=== PATIENT | female | born 1930 | race Caucasian/White ===

== ENCOUNTER 2017-02-18 21:25 | Inpatient (IN) | payer MEDICARE ==
[~2017-02-18] VITALS: Ht 160 cm; Wt 48.1 kg
[2017-02-18 22:02] LABS: BASOPHILS % (AUTO) 0.3 % (0.0-2.0); HEMATOCRIT 43 % (33-45); HEMOGLOBIN 13.5 g/dL (11.5-14.8); LYMPHOCYTES # (AUTO) 0.8 /CMM (0.8-4.8); LYMPHOCYTES % (AUTO) 5.2 % (20.0-44.0); MEAN CORPUSCULAR HEMOGLOBIN 27 PG (26.0-33.0); MEAN CORPUSCULAR HGB CONC 32 g/dl (31.0-36.0); MEAN CORPUSCULAR VOLUME 87 fL (82-100); MONOCYTES # (AUTO) 0.5 /CMM (0.1-1.30); MONOCYTES % (AUTO) 3.6 % (2.0-12.0); NEUTROPHILS # (AUTO) 13.4 /CMM (1.8-8.9); NEUTROPHILS % (AUTO) 90.9 % (43.0-81.0); PLATELET COUNT (AUTO) 291 /CMM (150-450); RED BLOOD CELL COUNT(AUTO) 4.93 MIL/uL (4.0-5.2); WHITE BLOOD COUNT (AUTO) 14.8 K/uL (4.3-11.0)
[2017-02-18 22:22] LABS: CALCIUM, SERUM 8.5 mg/dL (8.5-10.1); CARBON DIOXIDE 33 mmol/L (21-32); CHLORIDE 103 mmol/L (98-107); CREATININE 0.8 mg/dL (0.6-1.3); GLUCOSE 172 mg/dL (74-106); INR 1.82 (0.87-1.13); POTASSIUM 3.8 mmol/L (3.5-5.1); SODIUM SERUM 140 mmol/L (136-145); UREA NITROGEN, BLOOD 11 mg/dL (7-18)
[2017-02-18] MEDS ORDERED: AZITHROMYCIN 500 MG in IV D5W 250 ML IV ONE (22:30)
[2017-02-18] MEDS ORDERED: IV NS 0.9% 1,000 ML BAG IV ONE (22:30)
[2017-02-18] MEDS ORDERED: CEFTRIAXONE 1GM BAG (ER ONLY) 50 ML IV ONE ×2 (22:30→22:34)
[2017-02-18 22:31] LABS: TROPONIN I < 0.017 ng/mL (0.00-0.056)
[2017-02-18] MEDS ORDERED: AZITHROMYCIN 500 MG VIAL ONE (22:33)
[2017-02-18] MEDS ORDERED: methylPREDNISolone SOD SUCC 125 MG/2ML VIAL IV ONE (23:00)
[2017-02-18] MEDS ORDERED: ALBUTEROL FS 2.5 MG/3 ML VIAL.NEB NEB ONE (23:00)
[2017-02-18] MEDS ORDERED: IPRATROPIUM NEB FS 0.5 MG/2.5 ML AMPUL.NEB NEB ONE (23:00)
[2017-02-18] MEDS ORDERED: ALBUTEROL FS 2.5 MG/3 ML VIAL.NEB ONE (23:03)
[2017-02-18] MEDS ORDERED: IPRATROPIUM NEB FS 0.5 MG/2.5 ML AMPUL.NEB ONE (23:03)
[2017-02-18] MEDS ORDERED: methylPREDNISolone SOD SUCC 125 MG/2ML VIAL ONE (23:03)
[2017-02-18 23:33] LABS: ALBUMIN 3.4 g/dL (3.4-5.0); BILIRUBIN,DIRECT 0.1 mg/dL (0.0-0.2); BILIRUBIN,TOTAL 0.5 mg/dL (0.2-1.0); TOTAL PROTEIN, SERUM 7.2 g/dL (6.4-8.2)
[2017-02-19] VITALS (7 sets, daily range): BP systolic 119–141; BP diastolic 53–69
[2017-02-19 01:02] LABS: APPEARANCE,URINE SL CLOUDY (CLEAR); BILIRUBIN,URINE NEGATIVE (NEGATIVE); BLOOD, URINE TRACE Ery/uL (NEGATIVE); COLOR,URINE YELLOW (YELLOW); KETONES,URINE NEGATIVE (NEGATIVE); LEUKOCYTE ESTERASE ,URINE NEGATIVE (NEGATIVE); NITRITE, URINE NEGATIVE (NEGATIVE); PROTEIN,URINE NEGATIVE (NEGATIVE); UGLUCOSE NEGATIVE (NEGATIVE); UROBILINOGEN,URINE 0.2 EU/dL (0.2)
[2017-02-19 01:11] LABS: BACTERIA,URINE Rare /HPF (None Seen); SQUAMOUS EPITHELIAL CELL,UR Moderate /HPF (None Seen); WBC,URINE 0-2 /HPF (0-3)
[2017-02-19] MEDS ORDERED: Z GUARD REMEDY 2 OZ OINT TP PRN (01:30)
[2017-02-19] MEDS ORDERED: HYDROCODONE/APAP 5/325MG 1 EACH TABLET PO PRN (01:30)
[2017-02-19] MEDS ORDERED: ZOLPIDEM TARTRATE 5 MG TABLET PO PRN (01:30)
[2017-02-19] MEDS ORDERED: ONDANSETRON HCL/PF 4 MG/2 ML VIAL IVP PRN (01:30)
[2017-02-19] MEDS ORDERED: ACETAMINOPHEN 325 MG TABLET PO PRN (01:30)
[2017-02-19] MEDS ORDERED: MAGNESIUM HYDROXIDE 30 ML UDC PO PRN (01:30)
[2017-02-19] MEDS: IV NS 0.9% 1,000 ML IV PRN ×2 (01:59→18:36)
[2017-02-19] MEDS: LEVOFLOXACIN 500 MG /D5W 100ML 500 MG in PREMIX 1 EA IV SCH (02:59)
[2017-02-19] MEDS: ENOXAPARIN SODIUM 30 MG/0.3 ML DISP.SYRIN SQ SCH ×2 (03:04→21:09)
[2017-02-19] MEDS: methylPREDNISolone SOD SUCC 40 MG/ML VIAL IV SCH ×3 (08:27→16:19)
[2017-02-19 08:33] LABS: CALCIUM, SERUM 7.8 mg/dL (8.5-10.1); CARBON DIOXIDE 26 mmol/L (21-32); CHLORIDE 105 mmol/L (98-107); CREATININE 0.7 mg/dL (0.6-1.3); GLUCOSE 161 mg/dL (74-106); POTASSIUM 4.4 mmol/L (3.5-5.1); SODIUM SERUM 140 mmol/L (136-145); UREA NITROGEN, BLOOD 9 mg/dL (7-18)
[2017-02-19] MEDS ORDERED: WARF2.5T47 PO (09:54)
[2017-02-19] MEDS ORDERED: ROFL500T PO (09:54)
[2017-02-19] MEDS ORDERED: CHOL100044 PO (09:54)
[2017-02-19] MEDS ORDERED: WARF5TAB77 PO (09:54)
[2017-02-19] MEDS ORDERED: AMIO200T2 PO (09:54)
[2017-02-19] MEDS ORDERED: DILT-32 PO (09:54)
[2017-02-19] MEDS ORDERED: IV NS 0.9% 500 ML IV ONE (12:30)
[2017-02-19 13:00] LABS: HEMATOCRIT 39 % (33-45); HEMOGLOBIN 12.3 g/dL (11.5-14.8); LYMPHOCYTES # (AUTO) 0.4 /CMM (0.8-4.8); MEAN CORPUSCULAR HEMOGLOBIN 28 PG (26.0-33.0); MEAN CORPUSCULAR HGB CONC 32 g/dl (31.0-36.0); MEAN CORPUSCULAR VOLUME 88 fL (82-100); MONOCYTES # (AUTO) 0.5 /CMM (0.1-1.30); MONOCYTES % (AUTO) 2.4 % (2.0-12.0); NEUTROPHILS # (AUTO) 19.5 /CMM (1.8-8.9); NEUTROPHILS % (AUTO) 95.6 % (43.0-81.0); PLATELET COUNT (AUTO) 233 /CMM (150-450); RDW COEFFICIENT OF VARIATION 14.5 (11.5-15.0); WHITE BLOOD COUNT (AUTO) 20.4 K/uL (4.3-11.0)
[2017-02-19] MEDS: IPRATROPIUM NEB FS 0.5 MG/2.5 ML AMPUL.NEB NEB PRN (13:28)
[2017-02-19] MEDS: ALBUTEROL FS 2.5 MG/0.5 ML VIAL.NEB NEB PRN (13:28)
[2017-02-19] MEDS ORDERED: WARF1TAB6 PO (16:01)
[2017-02-19] MEDS ORDERED: TIOT18CA3 IH (16:01)
[2017-02-19] MEDS ORDERED: BUDE10.2 IH (16:01)
[2017-02-19] MEDS ORDERED: MULT-659 PO (16:01)
[2017-02-19] MEDS ORDERED: WARF2TAB6 PO (16:01)
[2017-02-19] MEDS ORDERED: AMIODARONE HCL 200 MG TABLET PO SCH (21:30)
[2017-02-19] MEDS ORDERED: WARFARIN SODIUM 1 MG TABLET PO SCH (21:30)
[2017-02-19] MEDS ORDERED: WARFARIN SODIUM 1 MG TABLET ONE (22:03)
[2017-02-19] MEDS ORDERED: AMIODARONE HCL 200 MG TABLET ONE (22:04)
[2017-02-20] VITALS: BP 133/60
[2017-02-20 04:00] VITALS: BP 136/50
[2017-02-20] MEDS: LEVOFLOXACIN 500 MG /D5W 100ML 500 MG in PREMIX 1 EA IV SCH (04:22)
[2017-02-20 06:48] LABS: BASOPHILS % (AUTO) 0.1 % (0.0-2.0); EOSINOPHILS % (AUTO) 0.1 % (0.0-6.0); HEMATOCRIT 35 % (33-45); HEMOGLOBIN 11.6 g/dL (11.5-14.8); LYMPHOCYTES # (AUTO) 0.7 /CMM (0.8-4.8); LYMPHOCYTES % (AUTO) 4.2 % (20.0-44.0); MEAN CORPUSCULAR HEMOGLOBIN 28 PG (26.0-33.0); MEAN CORPUSCULAR HGB CONC 33 g/dl (31.0-36.0); MEAN CORPUSCULAR VOLUME 85 fL (82-100); MONOCYTES # (AUTO) 0.8 /CMM (0.1-1.30); MONOCYTES % (AUTO) 4.6 % (2.0-12.0); NEUTROPHILS # (AUTO) 15.5 /CMM (1.8-8.9); PLATELET COUNT (AUTO) 218 /CMM (150-450); RDW COEFFICIENT OF VARIATION 14.1 (11.5-15.0); RED BLOOD CELL COUNT(AUTO) 4.07 MIL/uL (4.0-5.2)
[2017-02-20 07:01] LABS: CALCIUM, SERUM 8.1 mg/dL (8.5-10.1); CARBON DIOXIDE 29 mmol/L (21-32); CHLORIDE 108 mmol/L (98-107); CREATININE 0.6 mg/dL (0.6-1.3); GLUCOSE 106 mg/dL (74-106); MAGNESIUM 1.9 mg/dL (1.8-2.4); PHOSPHORUS 2.8 mg/dL (2.5-4.9); POTASSIUM 4.1 mmol/L (3.5-5.1); SODIUM SERUM 141 mmol/L (136-145); UREA NITROGEN, BLOOD 15 mg/dL (7-18)
[2017-02-20 07:11] LABS: CHOLESTEROL 161 mg/dL (<200); HDL CHOLESTEROL 100 mg/dL (40-60); LDL 56 mg/dL (0-99); TRIGLYCERIDES 29 mg/dL (30-150)
[2017-02-20 08:00] VITALS: BP 119/66
[2017-02-20] MEDS: methylPREDNISolone SOD SUCC 40 MG/ML VIAL IV SCH ×3 (09:13→17:41)
[2017-02-20] MEDS: CHOLECALCIFEROL 1,000 UNIT TABLET (VIT D3) PO SCH (09:18)
[2017-02-20] MEDS: DILTIAZEM HCL CD 120 MG PO SCH (09:18)
[2017-02-20] MEDS: IV NS 0.9% 1,000 ML IV PRN (11:22)
[2017-02-20 12:00] VITALS: BP 132/66
[2017-02-20 15:52] LABS: LYMPHOCYTES % (MANUAL) 3 % (16-48); MONOCYTES % (MANUAL) 12 % (0-11.0); NEUTROPHILS % (MANUAL) 85 (42-76)
[2017-02-20 16:00] VITALS: BP 128/65
[2017-02-20 19:23] LABS: INR 2.9 (0.87-1.13); PROTHROMBIN TIME 30.5 SECS (9.5-12.7)
[2017-02-20 20:00] VITALS: BP 111/65
[2017-02-20] MEDS: WARFARIN SODIUM 2 MG TABLET PO SCH (20:40)
[2017-02-20] MEDS: ENOXAPARIN SODIUM 30 MG/0.3 ML DISP.SYRIN SQ SCH (20:41)
[2017-02-20] MEDS: ALBUTEROL FS 2.5 MG/0.5 ML VIAL.NEB NEB PRN (21:13)
[2017-02-20] MEDS ORDERED: LORAZEPAM INJ 2 MG/ML VIAL IV ONE (23:00)
[2017-02-20] MEDS ORDERED: LEVALBUTEROL HCL NEB 1.25 MG/0.5 ML VIAL.NEB ONE (23:35)
[2017-02-20] MEDS: IPRATROPIUM NEB FS 0.5 MG/2.5 ML AMPUL.NEB NEB PRN (23:40)
[2017-02-20] MEDS: LEVALBUTEROL HCL NEB 1.25 MG/0.5 ML VIAL.NEB NEB PRN (23:40)
[2017-02-21] VITALS (16 sets, daily range): BP systolic 111–184; BP diastolic 61–140
[2017-02-21] MEDS ORDERED: KETOROLAC TROMETHAMINE INJ 30 MG/ML VIAL ONE (02:48)
[2017-02-21] MEDS: LEVOFLOXACIN 500 MG /D5W 100ML 500 MG in PREMIX 1 EA IV SCH (02:52)
[2017-02-21] MEDS: IV NS 0.9% 1,000 ML IV PRN (02:52)
[2017-02-21] MEDS ORDERED: KETOROLAC TROMETHAMINE INJ 30 MG/ML VIAL IV ONE (03:00)
[2017-02-21] MEDS: DILTIAZEM HCL CD 120 MG PO SCH (08:34)
[2017-02-21] MEDS: methylPREDNISolone SOD SUCC 40 MG/ML VIAL IV SCH ×2 (08:35→16:32)
[2017-02-21] MEDS: MULTIVIT, IRON, MIN NO. 8, FA 1 TAB PO SCH (08:35)
[2017-02-21] MEDS: CHOLECALCIFEROL 1,000 UNIT TABLET (VIT D3) PO SCH (08:35)
[2017-02-21 08:55] LABS: CALCIUM, SERUM 7.8 mg/dL (8.5-10.1); CARBON DIOXIDE 29 mmol/L (21-32); CHLORIDE 107 mmol/L (98-107); CREATININE 0.6 mg/dL (0.6-1.3); GLUCOSE 108 mg/dL (74-106); POTASSIUM 3.9 mmol/L (3.5-5.1); SODIUM SERUM 142 mmol/L (136-145); UREA NITROGEN, BLOOD 17 mg/dL (7-18)
[2017-02-21] MEDS: IPRATROPIUM NEB FS 0.5 MG/2.5 ML AMPUL.NEB NEB PRN (09:29)
[2017-02-21] MEDS: LEVALBUTEROL HCL NEB 1.25 MG/0.5 ML VIAL.NEB NEB PRN (09:29)
[2017-02-21 09:38] LABS: INR 3.43 (0.87-1.13); PROTHROMBIN TIME 36.1 SECS (9.5-12.7)
[2017-02-21 13:58] LABS: BASOPHILS % (AUTO) 0.2 % (0.0-2.0); HEMATOCRIT 36 % (33-45); LYMPHOCYTES # (AUTO) 0.5 /CMM (0.8-4.8); MEAN CORPUSCULAR HEMOGLOBIN 28 PG (26.0-33.0); MEAN CORPUSCULAR HGB CONC 33 g/dl (31.0-36.0); MEAN CORPUSCULAR VOLUME 86 fL (82-100); MONOCYTES # (AUTO) 0.6 /CMM (0.1-1.30); MONOCYTES % (AUTO) 5.3 % (2.0-12.0); NEUTROPHILS # (AUTO) 10.9 /CMM (1.8-8.9); NEUTROPHILS % (AUTO) 90.5 % (43.0-81.0); PLATELET COUNT (AUTO) 241 /CMM (150-450); RDW COEFFICIENT OF VARIATION 14.1 (11.5-15.0); RED BLOOD CELL COUNT(AUTO) 4.23 MIL/uL (4.0-5.2)
[2017-02-21] MEDS ORDERED: IOHEXOL-350 100 ML VIAL IV ONE (16:31)
[2017-02-21 16:32] LABS: PHOSPHORUS 2.6 mg/dL (2.5-4.9)
[2017-02-21] MEDS ORDERED: IV NS 0.9% 250 ML IV ONE (16:32)
[2017-02-21] MEDS: WARFARIN SODIUM 2 MG TABLET PO SCH (16:44)
[2017-02-21 16:58] LABS: ABG BASE EXCESS 3.4 mmol/L; ABG OXYGEN SATURATION 83.9 % (92.0-98.5); ABG PCO2 43.7 mmHg (35.0-45.0); ABG PH 7.428 (7.350-7.450); ABG PO2 47.1 mmHg (75.0-100.0); AaDO2 332.6 mmHg; COHb 0.3 % (0.5-1.5); MetHb 0.3 % (0.0-1.5); O2Hb 83.4 % (94.0-97.0); SITE, ABG Right Radial; VENT MODE, BG AEROSOL MASK /HHN 10/L
[2017-02-21] MEDS: IPRATROPIUM NEB FS 0.5 MG/2.5 ML AMPUL.NEB NEB SCH (17:17)
[2017-02-21] MEDS: LEVALBUTEROL HCL NEB 1.25 MG/0.5 ML VIAL.NEB NEB SCH (17:17)
[2017-02-21 19:36] LABS: ABG BASE EXCESS 1.7 mmol/L; ABG OXYGEN SATURATION 98.8 % (92.0-98.5); ABG PO2 173.8 mmHg (75.0-100.0); AaDO2 496.2 mmHg; COHb 0.3 % (0.5-1.5); MetHb 0.6 % (0.0-1.5); O2Hb 97.9 % (94.0-97.0); SITE, ABG Right Radial; VENT MODE, BG BIPAP 15/5
[2017-02-21] MEDS ORDERED: MEROPENEM 500 MG VIAL IV ONE (22:15)
[2017-02-21] MEDS: MEROPENEM 500 MG in IV NS 0.9% 50 ML IV SCH (22:29)
[2017-02-22] VITALS (27 sets, daily range): BP systolic 114–146; BP diastolic 63–96
[2017-02-22] MEDS: IPRATROPIUM NEB FS 0.5 MG/2.5 ML AMPUL.NEB NEB SCH ×4 (00:01→23:35)
[2017-02-22] MEDS: LEVALBUTEROL HCL NEB 1.25 MG/0.5 ML VIAL.NEB NEB SCH ×4 (00:01→23:35)
[2017-02-22] MEDS: LEVOFLOXACIN 500 MG /D5W 100ML 500 MG in PREMIX 1 EA IV SCH (02:39)
[2017-02-22] MEDS: IV NS 0.9% 1,000 ML IV PRN (02:39)
[2017-02-22 05:34] LABS: BASOPHILS % (AUTO) 0.1 % (0.0-2.0); EOSINOPHILS % (AUTO) 0.1 % (0.0-6.0); HEMATOCRIT 36 % (33-45); LYMPHOCYTES # (AUTO) 0.6 /CMM (0.8-4.8); LYMPHOCYTES % (AUTO) 6.2 % (20.0-44.0); MEAN CORPUSCULAR HEMOGLOBIN 28 PG (26.0-33.0); MEAN CORPUSCULAR HGB CONC 33 g/dl (31.0-36.0); MEAN CORPUSCULAR VOLUME 85 fL (82-100); MONOCYTES # (AUTO) 0.6 /CMM (0.1-1.30); MONOCYTES % (AUTO) 5.9 % (2.0-12.0); NEUTROPHILS # (AUTO) 8.9 /CMM (1.8-8.9); NEUTROPHILS % (AUTO) 87.7 % (43.0-81.0); PLATELET COUNT (AUTO) 230 /CMM (150-450); RDW COEFFICIENT OF VARIATION 13.9 (11.5-15.0); RED BLOOD CELL COUNT(AUTO) 4.23 MIL/uL (4.0-5.2); WHITE BLOOD COUNT (AUTO) 10.1 K/uL (4.3-11.0)
[2017-02-22 05:41] LABS: CALCIUM, SERUM 7.8 mg/dL (8.5-10.1); CARBON DIOXIDE 30 mmol/L (21-32); CHLORIDE 106 mmol/L (98-107); CREATININE 0.6 mg/dL (0.6-1.3); GLUCOSE 133 mg/dL (74-106); POTASSIUM 3.7 mmol/L (3.5-5.1); SODIUM SERUM 142 mmol/L (136-145); UREA NITROGEN, BLOOD 17 mg/dL (7-18)
[2017-02-22 06:13] LABS: PROTHROMBIN TIME 42.9 SECS (9.5-12.7)
[2017-02-22 06:14] LABS: INR 4.07 (0.87-1.13)
[2017-02-22] MEDS ORDERED: MEROPENEM 500 MG VIAL IV ONE (06:17)
[2017-02-22] MEDS: MEROPENEM 500 MG in IV NS 0.9% 50 ML IV SCH ×3 (06:34→21:41)
[2017-02-22] MEDS: methylPREDNISolone SOD SUCC 40 MG/ML VIAL IV SCH ×2 (08:22→17:36)
[2017-02-22] MEDS: CHOLECALCIFEROL 1,000 UNIT TABLET (VIT D3) PO SCH (08:22)
[2017-02-22] MEDS: MULTIVIT, IRON, MIN NO. 8, FA 1 TAB PO SCH (08:22)
[2017-02-22] MEDS: DILTIAZEM HCL CD 120 MG PO SCH (08:23)
[2017-02-22] MEDS: DOXYCYCLINE 100 MG in IV D5W 100 ML IV SCH ×2 (08:56→21:41)
[2017-02-22] MEDS ORDERED: ENOXAPARIN SODIUM 30 MG/0.3 ML DISP.SYRIN SQ SCH (09:00)
[2017-02-22 09:18] LABS: ABG BASE EXCESS 4.8 mmol/L; ABG OXYGEN SATURATION 90.7 % (92.0-98.5); ABG PCO2 40.4 mmHg (35.0-45.0); ABG PH 7.471 (7.350-7.450); ABG PO2 57.4 mmHg (75.0-100.0); AaDO2 159.7 mmHg; COHb 0.3 % (0.5-1.5); MetHb 0.4 % (0.0-1.5); O2Hb 90.1 % (94.0-97.0); SITE, ABG Right Radial; VENT MODE, BG NASAL CANNULA
[2017-02-22] MEDS: PANTOPRAZOLE 40 MG TABLET.DR PO SCH (12:04)
[2017-02-22] MEDS: FORMOTEROL FUMARATE INH SCH ×2 (12:04→21:41)
[2017-02-22] MEDS: BUDESONIDE INH SCH ×2 (12:04→21:41)
[2017-02-22] MEDS: GUAIFENESIN LA 600 MG TABLET.SA PO SCH ×2 (14:00→17:36)
[2017-02-22] MEDS ORDERED: BENZOCAINE DENTAL GEL 7.5% 9.9 GM TUBE MM PRN (15:30)
[2017-02-22] MEDS: WARFARIN SODIUM 2 MG TABLET PO SCH (16:12)
[2017-02-23] VITALS (14 sets, daily range): BP systolic 108–151; BP diastolic 59–85
[2017-02-23] MEDS: LEVOFLOXACIN 500 MG /D5W 100ML 500 MG in PREMIX 1 EA IV SCH (02:50)
[2017-02-23 05:24] LABS: CALCIUM, SERUM 7.7 mg/dL (8.5-10.1); CREATININE 0.6 mg/dL (0.6-1.3); GLUCOSE 153 mg/dL (74-106); UREA NITROGEN, BLOOD 19 mg/dL (7-18)
[2017-02-23 05:29] LABS: EOSINOPHILS % (AUTO) 0.2 % (0.0-6.0); HEMATOCRIT 35 % (33-45); HEMOGLOBIN 11.4 g/dL (11.5-14.8); LYMPHOCYTES # (AUTO) 0.5 /CMM (0.8-4.8); LYMPHOCYTES % (AUTO) 5.9 % (20.0-44.0); MEAN CORPUSCULAR HEMOGLOBIN 28 PG (26.0-33.0); MEAN CORPUSCULAR HGB CONC 33 g/dl (31.0-36.0); MEAN CORPUSCULAR VOLUME 85 fL (82-100); MONOCYTES # (AUTO) 0.4 /CMM (0.1-1.30); MONOCYTES % (AUTO) 5.3 % (2.0-12.0); NEUTROPHILS # (AUTO) 7.3 /CMM (1.8-8.9); NEUTROPHILS % (AUTO) 88.6 % (43.0-81.0); PLATELET COUNT (AUTO) 226 /CMM (150-450); RDW COEFFICIENT OF VARIATION 13.7 (11.5-15.0); RED BLOOD CELL COUNT(AUTO) 4.07 MIL/uL (4.0-5.2); WHITE BLOOD COUNT (AUTO) 8.3 K/uL (4.3-11.0)
[2017-02-23 05:33] LABS: CARBON DIOXIDE 32 mmol/L (21-32); CHLORIDE 106 mmol/L (98-107); POTASSIUM 3.6 mmol/L (3.5-5.1); SODIUM SERUM 141 mmol/L (136-145)
[2017-02-23] MEDS: MEROPENEM 500 MG in IV NS 0.9% 50 ML IV SCH ×3 (05:55→20:05)
[2017-02-23 06:02] LABS: INR 3.6 (0.87-1.13); PROTHROMBIN TIME 37.9 SECS (9.5-12.7)
[2017-02-23] MEDS: IPRATROPIUM NEB FS 0.5 MG/2.5 ML AMPUL.NEB NEB SCH ×2 (07:51→23:10)
[2017-02-23] MEDS: DOXYCYCLINE 100 MG in IV D5W 100 ML IV SCH ×2 (09:10→20:50)
[2017-02-23] MEDS: CHOLECALCIFEROL 1,000 UNIT TABLET (VIT D3) PO SCH (09:10)
[2017-02-23] MEDS: AMIODARONE HCL 200 MG TABLET PO SCH (09:11)
[2017-02-23] MEDS: methylPREDNISolone SOD SUCC 40 MG/ML VIAL IV SCH ×2 (09:11→16:57)
[2017-02-23] MEDS: GUAIFENESIN LA 600 MG TABLET.SA PO SCH ×2 (09:11→20:18)
[2017-02-23] MEDS: PANTOPRAZOLE 40 MG TABLET.DR PO SCH (09:12)
[2017-02-23] MEDS: MULTIVIT, IRON, MIN NO. 8, FA 1 TAB PO SCH (09:12)
[2017-02-23] MEDS: DILTIAZEM HCL CD 120 MG PO SCH (09:12)
[2017-02-23] MEDS: FORMOTEROL FUMARATE INH SCH (09:13)
[2017-02-23] MEDS: BUDESONIDE INH SCH (09:13)
[2017-02-23] MEDS: IV NS 0.9% 1,000 ML IV PRN (16:51)
[2017-02-23] MEDS: WARFARIN SODIUM 1 MG TABLET PO SCH (17:00)
[2017-02-23] MEDS: LACTOBACILLUS RHAMNOSUS GG 1 EACH CAP.SPRINK PO SCH (17:01)
[2017-02-23] MEDS: LEVALBUTEROL HCL NEB 1.25 MG/0.5 ML VIAL.NEB NEB SCH (23:10)
[2017-02-24] VITALS: BP 127/91
[2017-02-24] MEDS: FORMOTEROL FUMARATE INH SCH ×3 (03:06→21:54)
[2017-02-24] MEDS: BUDESONIDE INH SCH ×3 (03:06→21:54)
[2017-02-24 04:00] VITALS: BP 129/70
[2017-02-24] MEDS: MEROPENEM 500 MG in IV NS 0.9% 50 ML IV SCH ×3 (05:27→21:54)
[2017-02-24] MEDS: IPRATROPIUM NEB FS 0.5 MG/2.5 ML AMPUL.NEB NEB SCH ×2 (07:32→15:23)
[2017-02-24] MEDS: LEVALBUTEROL HCL NEB 1.25 MG/0.5 ML VIAL.NEB NEB SCH ×2 (07:32→15:41)
[2017-02-24 08:00] VITALS: BP_SYST 128; BP_DIAS 85; BP_DIAS 87
[2017-02-24] MEDS: CHOLECALCIFEROL 1,000 UNIT TABLET (VIT D3) PO SCH (08:25)
[2017-02-24] MEDS: methylPREDNISolone SOD SUCC 40 MG/ML VIAL IV SCH ×2 (08:25→16:50)
[2017-02-24] MEDS: PANTOPRAZOLE 40 MG TABLET.DR PO SCH (08:25)
[2017-02-24] MEDS: GUAIFENESIN LA 600 MG TABLET.SA PO SCH ×2 (08:25→21:53)
[2017-02-24] MEDS: LACTOBACILLUS RHAMNOSUS GG 1 EACH CAP.SPRINK PO SCH ×2 (08:26→16:50)
[2017-02-24] MEDS: MULTIVIT, IRON, MIN NO. 8, FA 1 TAB PO SCH (08:26)
[2017-02-24] MEDS: DILTIAZEM HCL CD 120 MG PO SCH (08:26)
[2017-02-24] MEDS: DOXYCYCLINE 100 MG in IV D5W 100 ML IV SCH ×2 (08:58→21:54)
[2017-02-24 10:51] LABS: INR 2.42 (0.87-1.13); PROTHROMBIN TIME 25.4 SECS (9.5-12.7)
[2017-02-24 12:00] VITALS: BP_SYST 130; BP_SYST 135; BP_DIAS 82; BP_DIAS 85
[2017-02-24] MEDS: IV NS 0.9% 1,000 ML IV PRN (12:35)
[2017-02-24 13:27] LABS: BASOPHILS # (AUTO) 0.1 /CMM (0.0-0.2); BASOPHILS % (AUTO) 0.7 % (0.0-2.0); EOSINOPHILS # (AUTO) 0.1 /CMM (0.0-0.7); HEMATOCRIT 45 % (33-45); HEMOGLOBIN 14.3 g/dL (11.5-14.8); MEAN CORPUSCULAR HEMOGLOBIN 27 PG (26.0-33.0); MEAN CORPUSCULAR HGB CONC 32 g/dl (31.0-36.0); MEAN CORPUSCULAR VOLUME 85 fL (82-100); MONOCYTES % (AUTO) 6.4 % (2.0-12.0); NEUTROPHILS # (AUTO) 12.7 /CMM (1.8-8.9); NEUTROPHILS % (AUTO) 84.9 % (43.0-81.0); PLATELET COUNT (AUTO) 356 /CMM (150-450); RDW COEFFICIENT OF VARIATION 13.9 (11.5-15.0); RED BLOOD CELL COUNT(AUTO) 5.25 MIL/uL (4.0-5.2); WHITE BLOOD COUNT (AUTO) 14.9 K/uL (4.3-11.0)
[2017-02-24 13:41] LABS: CALCIUM, SERUM 7.7 mg/dL (8.5-10.1); CARBON DIOXIDE 29 mmol/L (21-32); CHLORIDE 106 mmol/L (98-107); CREATININE 0.7 mg/dL (0.6-1.3); GLUCOSE 160 mg/dL (74-106); POTASSIUM 3.7 mmol/L (3.5-5.1); SODIUM SERUM 143 mmol/L (136-145); UREA NITROGEN, BLOOD 16 mg/dL (7-18)
[2017-02-24 15:07] LABS: BAND % (MANUAL) 3 % (0.0-5.0); LYMPHOCYTES % (MANUAL) 8 % (16-48); MONOCYTES % (MANUAL) 11 % (0-11.0); NEUTROPHILS % (MANUAL) 78 (42-76)
[2017-02-24 16:00] VITALS: BP 144/76
[2017-02-24] MEDS: WARFARIN SODIUM 2 MG TABLET PO SCH (16:51)
[2017-02-24 20:00] VITALS: BP 136/81
[2017-02-24] MEDS ORDERED: LEVOFLOXACIN (500MG) 500 MG TABLET PO SCH (23:00)
[2017-02-25] VITALS: BP 138/78
[2017-02-25] MEDS ORDERED: TEMAZEPAM 15 MG CAPSULE ONE (00:04)
[2017-02-25] MEDS: LEVALBUTEROL HCL NEB 1.25 MG/0.5 ML VIAL.NEB NEB SCH ×4 (00:09→23:55)
[2017-02-25] MEDS: IPRATROPIUM NEB FS 0.5 MG/2.5 ML AMPUL.NEB NEB SCH ×4 (00:09→23:55)
[2017-02-25 04:00] VITALS: BP 119/67
[2017-02-25] MEDS: MEROPENEM 500 MG in IV NS 0.9% 50 ML IV SCH (05:57)
[2017-02-25 07:33] LABS: BASOPHILS % (AUTO) 0.1 % (0.0-2.0); HEMATOCRIT 40 % (33-45); HEMOGLOBIN 13.2 g/dL (11.5-14.8); INR 2.42 (0.87-1.13); LYMPHOCYTES % (AUTO) 7.6 % (20.0-44.0); MEAN CORPUSCULAR HEMOGLOBIN 28 PG (26.0-33.0); MEAN CORPUSCULAR HGB CONC 33 g/dl (31.0-36.0); MEAN CORPUSCULAR VOLUME 85 fL (82-100); MONOCYTES # (AUTO) 0.8 /CMM (0.1-1.30); MONOCYTES % (AUTO) 6.3 % (2.0-12.0); NEUTROPHILS # (AUTO) 11.6 /CMM (1.8-8.9); PLATELET COUNT (AUTO) 288 /CMM (150-450); PROTHROMBIN TIME 25.4 SECS (9.5-12.7); RDW COEFFICIENT OF VARIATION 14.8 (11.5-15.0); RED BLOOD CELL COUNT(AUTO) 4.66 MIL/uL (4.0-5.2); WHITE BLOOD COUNT (AUTO) 13.5 K/uL (4.3-11.0)
[2017-02-25 07:55] LABS: CALCIUM, SERUM 7.9 mg/dL (8.5-10.1); CARBON DIOXIDE 32 mmol/L (21-32); CHLORIDE 105 mmol/L (98-107); CREATININE 0.6 mg/dL (0.6-1.3); GLUCOSE 123 mg/dL (74-106); POTASSIUM 3.7 mmol/L (3.5-5.1); SODIUM SERUM 141 mmol/L (136-145); UREA NITROGEN, BLOOD 18 mg/dL (7-18)
[2017-02-25 08:00] VITALS: BP 124/77
[2017-02-25] MEDS: MULTIVIT, IRON, MIN NO. 8, FA 1 TAB PO SCH (09:56)
[2017-02-25] MEDS: GUAIFENESIN LA 600 MG TABLET.SA PO SCH ×2 (09:56→21:09)
[2017-02-25] MEDS: LACTOBACILLUS RHAMNOSUS GG 1 EACH CAP.SPRINK PO SCH ×2 (09:56→17:51)
[2017-02-25] MEDS: DILTIAZEM HCL CD 120 MG PO SCH (09:56)
[2017-02-25] MEDS: CHOLECALCIFEROL 1,000 UNIT TABLET (VIT D3) PO SCH (09:56)
[2017-02-25] MEDS: FORMOTEROL FUMARATE INH SCH ×2 (09:57→21:22)
[2017-02-25] MEDS: methylPREDNISolone SOD SUCC 40 MG/ML VIAL IV SCH (09:57)
[2017-02-25] MEDS: BUDESONIDE INH SCH ×2 (09:57→21:22)
[2017-02-25] MEDS: PANTOPRAZOLE 40 MG TABLET.DR PO SCH (10:00)
[2017-02-25] MEDS: DOXYCYCLINE 100 MG in IV D5W 100 ML IV SCH (10:03)
[2017-02-25 12:00] VITALS: BP 138/90
[2017-02-25] MEDS ORDERED: MEROPENEM 1 G in IV NS 0.9% 100 ML IV SCH (14:00)
[2017-02-25 16:00] VITALS: BP 137/74
[2017-02-25] MEDS: FLUCONAZOLE (100 MG) 100 MG TABLET PO SCH (17:51)
[2017-02-25] MEDS: NYSTATIN (PYXIS) 500,000 UNIT/5 ML ORAL.SUSP PO SCH (17:53)
[2017-02-25] MEDS: WARFARIN SODIUM 2 MG TABLET PO SCH (17:56)
[2017-02-25 19:14] LABS: INR 2.86 (0.87-1.13); PROTHROMBIN TIME 30.1 SECS (9.5-12.7)
[2017-02-25 20:00] VITALS: BP 120/73
[2017-02-25] MEDS: DOXYCYCLINE HYCLATE (100 MG) 100 MG TABLET PO SCH (21:09)
[2017-02-25] MEDS: TEMAZEPAM 15 MG CAPSULE PO PRN (21:22)
[2017-02-26] VITALS: BP 97/61
[2017-02-26 04:00] VITALS: BP 133/58
[2017-02-26 08:00] VITALS: BP 122/64
[2017-02-26] MEDS: IPRATROPIUM NEB FS 0.5 MG/2.5 ML AMPUL.NEB NEB SCH ×3 (08:12→23:44)
[2017-02-26] MEDS: LEVALBUTEROL HCL NEB 1.25 MG/0.5 ML VIAL.NEB NEB SCH ×3 (08:12→23:44)
[2017-02-26] MEDS: PANTOPRAZOLE 40 MG TABLET.DR PO SCH (08:47)
[2017-02-26] MEDS: BUDESONIDE INH SCH ×2 (09:00→21:00)
[2017-02-26] MEDS: FORMOTEROL FUMARATE INH SCH ×2 (09:00→21:00)
[2017-02-26] MEDS: CHOLECALCIFEROL 1,000 UNIT TABLET (VIT D3) PO SCH (09:00)
[2017-02-26] MEDS: DOXYCYCLINE HYCLATE (100 MG) 100 MG TABLET PO SCH (10:25)
[2017-02-26] MEDS: DILTIAZEM HCL CD 120 MG PO SCH (10:26)
[2017-02-26] MEDS: FLUCONAZOLE (100 MG) 100 MG TABLET PO SCH (10:26)
[2017-02-26] MEDS: AMIODARONE HCL 200 MG TABLET PO SCH (10:27)
[2017-02-26] MEDS: LACTOBACILLUS RHAMNOSUS GG 1 EACH CAP.SPRINK PO SCH ×2 (10:27→17:00)
[2017-02-26] MEDS: methylPREDNISolone SOD SUCC 40 MG/ML VIAL IV SCH (10:27)
[2017-02-26] MEDS: MULTIVIT, IRON, MIN NO. 8, FA 1 TAB PO SCH (10:28)
[2017-02-26] MEDS: NYSTATIN (PYXIS) 500,000 UNIT/5 ML ORAL.SUSP PO SCH ×3 (10:28→17:00)
[2017-02-26] MEDS: GUAIFENESIN LA 600 MG TABLET.SA PO SCH ×2 (10:30→22:56)
[2017-02-26 12:00] VITALS: BP 126/62
[2017-02-26 13:19] LABS: INR 2.92 (0.87-1.13); PROTHROMBIN TIME 30.7 SECS (9.5-12.7)
[2017-02-26 16:00] VITALS: BP 110/64
[2017-02-26] MEDS: WARFARIN SODIUM 1 MG TABLET PO SCH (17:00)
[2017-02-26] MEDS: LEVOFLOXACIN (500MG) 500 MG TABLET PO SCH (17:00)
[2017-02-26 20:00] VITALS: BP 107/61
[2017-02-26] MEDS: TEMAZEPAM 15 MG CAPSULE PO PRN (23:08)
[2017-02-27] VITALS: BP 110/59
[2017-02-27 04:00] VITALS: BP 115/58
[2017-02-27] MEDS: IPRATROPIUM NEB FS 0.5 MG/2.5 ML AMPUL.NEB NEB SCH ×3 (07:40→23:52)
[2017-02-27] MEDS: LEVALBUTEROL HCL NEB 1.25 MG/0.5 ML VIAL.NEB NEB SCH ×3 (07:41→23:51)
[2017-02-27 07:57] LABS: BASOPHILS % (AUTO) 0.3 % (0.0-2.0); EOSINOPHILS # (AUTO) 0.1 /CMM (0.0-0.7); EOSINOPHILS % (AUTO) 0.6 % (0.0-6.0); HEMATOCRIT 40 % (33-45); HEMOGLOBIN 12.9 g/dL (11.5-14.8); LYMPHOCYTES # (AUTO) 1.4 /CMM (0.8-4.8); LYMPHOCYTES % (AUTO) 11.2 % (20.0-44.0); MEAN CORPUSCULAR HEMOGLOBIN 28 PG (26.0-33.0); MEAN CORPUSCULAR HGB CONC 32 g/dl (31.0-36.0); MEAN CORPUSCULAR VOLUME 86 fL (82-100); MONOCYTES # (AUTO) 0.9 /CMM (0.1-1.30); MONOCYTES % (AUTO) 7.4 % (2.0-12.0); NEUTROPHILS % (AUTO) 80.5 % (43.0-81.0); PLATELET COUNT (AUTO) 219 /CMM (150-450); RED BLOOD CELL COUNT(AUTO) 4.62 MIL/uL (4.0-5.2); WHITE BLOOD COUNT (AUTO) 12.5 K/uL (4.3-11.0)
[2017-02-27 08:00] VITALS: BP 138/72
[2017-02-27 08:10] LABS: CALCIUM, SERUM 7.9 mg/dL (8.5-10.1); CARBON DIOXIDE 29 mmol/L (21-32); CHLORIDE 103 mmol/L (98-107); CREATININE 0.5 mg/dL (0.6-1.3); GLUCOSE 80 mg/dL (74-106); POTASSIUM 3.9 mmol/L (3.5-5.1); SODIUM SERUM 141 mmol/L (136-145); UREA NITROGEN, BLOOD 15 mg/dL (7-18)
[2017-02-27] MEDS: NYSTATIN (PYXIS) 500,000 UNIT/5 ML ORAL.SUSP PO SCH ×3 (09:19→17:08)
[2017-02-27] MEDS: methylPREDNISolone SOD SUCC 40 MG/ML VIAL IV SCH (09:20)
[2017-02-27] MEDS: PANTOPRAZOLE 40 MG TABLET.DR PO SCH (09:20)
[2017-02-27] MEDS: DILTIAZEM HCL CD 120 MG PO SCH (09:20)
[2017-02-27] MEDS: LACTOBACILLUS RHAMNOSUS GG 1 EACH CAP.SPRINK PO SCH ×2 (09:20→17:07)
[2017-02-27] MEDS: FLUCONAZOLE (100 MG) 100 MG TABLET PO SCH (09:20)
[2017-02-27] MEDS: CHOLECALCIFEROL 1,000 UNIT TABLET (VIT D3) PO SCH (09:20)
[2017-02-27] MEDS: MULTIVIT, IRON, MIN NO. 8, FA 1 TAB PO SCH (09:20)
[2017-02-27] MEDS: FORMOTEROL FUMARATE INH SCH ×2 (09:21→20:44)
[2017-02-27] MEDS: BUDESONIDE INH SCH ×2 (09:21→20:44)
[2017-02-27] MEDS: PHENYLEPHRINE/SHK LV/MO/PET,WH 30 GM TUBE RC PRN (09:23)
[2017-02-27] MEDS: GUAIFENESIN LA 600 MG TABLET.SA PO SCH ×2 (09:23→20:44)
[2017-02-27 12:00] VITALS: BP 108/58
[2017-02-27 16:00] VITALS: BP 108/56
[2017-02-27] MEDS: WARFARIN SODIUM 2 MG TABLET PO SCH (17:00)
[2017-02-27] MEDS: LEVOFLOXACIN (500MG) 500 MG TABLET PO SCH (17:07)
[2017-02-27 19:44] LABS: PROTHROMBIN TIME 44.1 SECS (9.5-12.7)
[2017-02-27 19:50] LABS: INR 4.18 (0.87-1.13)
[2017-02-27 20:00] VITALS: BP_SYST 131; BP_DIAS 47; BP_DIAS 97
[2017-02-27] MEDS: TEMAZEPAM 15 MG CAPSULE PO PRN (20:44)
[2017-02-28 04:00] VITALS: BP 132/60
[2017-02-28 07:12] LABS: INR 3.65 (0.87-1.13); PROTHROMBIN TIME 38.5 SECS (9.5-12.7)
[2017-02-28 08:00] VITALS: BP 117/65
[2017-02-28] MEDS: MULTIVIT, IRON, MIN NO. 8, FA 1 TAB PO SCH (08:24)
[2017-02-28] MEDS: LACTOBACILLUS RHAMNOSUS GG 1 EACH CAP.SPRINK PO SCH ×2 (08:24→17:39)
[2017-02-28] MEDS: PANTOPRAZOLE 40 MG TABLET.DR PO SCH (08:24)
[2017-02-28] MEDS: CHOLECALCIFEROL 1,000 UNIT TABLET (VIT D3) PO SCH (08:24)
[2017-02-28] MEDS: GUAIFENESIN LA 600 MG TABLET.SA PO SCH ×2 (08:24→21:10)
[2017-02-28] MEDS: FLUCONAZOLE (100 MG) 100 MG TABLET PO SCH (08:24)
[2017-02-28] MEDS: methylPREDNISolone SOD SUCC 40 MG/ML VIAL IV SCH (08:24)
[2017-02-28] MEDS: FORMOTEROL FUMARATE INH SCH ×2 (08:26→21:13)
[2017-02-28] MEDS: DILTIAZEM HCL CD 120 MG PO SCH (08:26)
[2017-02-28] MEDS: BUDESONIDE INH SCH ×2 (08:26→21:13)
[2017-02-28] MEDS: NYSTATIN (PYXIS) 500,000 UNIT/5 ML ORAL.SUSP PO SCH ×3 (08:28→17:39)
[2017-02-28] MEDS: IPRATROPIUM NEB FS 0.5 MG/2.5 ML AMPUL.NEB NEB SCH ×2 (08:40→16:05)
[2017-02-28] MEDS: LEVALBUTEROL HCL NEB 1.25 MG/0.5 ML VIAL.NEB NEB SCH ×2 (08:40→16:05)
[2017-02-28] MEDS ORDERED: FENTANYL PF 100MCG/2ML AMPUL ONE (11:58)
[2017-02-28] MEDS ORDERED: MIDAZOLAM HCL 5 MG/5ML VIAL ONE (11:58)
[2017-02-28 16:00] VITALS: BP 131/63
[2017-02-28] MEDS: WARFARIN SODIUM 2 MG TABLET PO SCH (17:00)
[2017-02-28] MEDS: LEVOFLOXACIN (500MG) 500 MG TABLET PO SCH (17:38)
[2017-02-28 20:00] VITALS: BP 109/62
[2017-02-28] MEDS: PHENYLEPHRINE/SHK LV/MO/PET,WH 30 GM TUBE RC PRN (21:11)
== END 2017-02-28 21:45 | DRG 871 ==
LOC: ER 21:28 → TELE-TD 02-19 00:30 → MEDSG1 02-21 09:59 → TELE1 02-21 17:11 → ICU 02-21 17:41 → TELE-TD 02-23 14:54 → TELE1 02-24 14:11 → MEDSG1 02-27 11:49
PROVIDERS: ADMIT Nurse Practitioner Acute Care; ATTEND Nurse Practitioner Acute Care
PROC: 05H633Z Insertion of Infusion Device into Left Subclavian Vein, Percutaneous Approach (ICD-10-PCS; principal; 2017-02-21)
PROC: 5A09357 Assistance with Respiratory Ventilation, Less than 24 Consecutive Hours, Continuous Positive Airway Pressure (ICD-10-PCS; 2017-02-21)
DX: A41.9 Sepsis, unspecified organism (principal); J69.0 Pneumonitis due to inhalation of food and vomit; J96.21 Acute and chronic respiratory failure with hypoxia; E87.2 Acidosis; D68.59 Other primary thrombophilia; I48.0 Paroxysmal atrial fibrillation; J44.0 Chronic obstructive pulmonary disease with (acute) lower respiratory infection; J44.1 Chronic obstructive pulmonary disease with (acute) exacerbation; D64.9 Anemia, unspecified; E78.5 Hyperlipidemia, unspecified; R65.20 Severe sepsis without septic shock; Z79.01 Long term (current) use of anticoagulants; Z87.01 Personal history of pneumonia (recurrent); Z87.891 Personal history of nicotine dependence; Z88.0 Allergy status to penicillin; Z99.81 Dependence on supplemental oxygen; R73.9 Hyperglycemia, unspecified; R07.89 Other chest pain
CPT/HCPCS: 36415; 36569; 36600; 71010-TC; 71045; 80048-TC; 80061-TC; 80076-TC; 81000-TC; 82803-TC; 83605-TC; 83735-TC; 84100-TC; 84484-TC; 85025-TC; 85610-TC; 85730-TC; 87040-TC; 87070-TC; 87081-TC; 87086-TC; 92611-TC; 93970-TC; 97116-TC; 97530-TC; A4216; A4606; J0456; J0696; J1650; J1885; J1956; J2185; J2250; J2920; J2930; J3010; J3490; J7030; J7050; J7060; Q9967; Z7610